=== PATIENT | female | born 1985 | race Hispanic/Latino ===

== ENCOUNTER 2021-02-28 21:42 | Emergency (ER) | payer BC ==
[2021-02-28 23:25] LABS: Bacteria/HPF None Seen HPF (None Seen); Bilirubin Negative (Negative); Blood, Urine Negative (Negative); Clarity Clear (Clear); Glucose, Urine (Dipstick) Normal (Negative); Ketone, Urine Negative (Negative); Leukocyte Negative Leu/uL (Negative); Nitrite Negative (Negative); Protein, Urine (Dipstick) Negative (Neg-Trace); RBC/HPF 0-3 HPF (0-3); Specific Gravity, Urine 1.006 (1.002-1.036); Squamous Epithelial 0-3 HPF (0-3); Urobilinogen Normal mg/dL (Less than 2); WBC/HPF 0-3 HPF (0-3)
[2021-03-03 20:40] LABS: Chlamydia by PCR Not Detected (NotDetected); GC by PCR Not Detected (NotDetected)
== END 2021-02-28 23:34 | disposition home or self-care (01) ==
LOC: ERS 21:42
DX: O99.891 Other specified diseases and conditions complicating pregnancy (principal); N89.8 Other specified noninflammatory disorders of vagina; O09.522 Supervision of elderly multigravida, second trimester
CPT/HCPCS: 81001; 87077; 87086; 87480; 87491; 87510; 87591; 87660; 99283

== ENCOUNTER 2021-03-06 08:33 | Outpatient (CLI) | payer BC | END 2021-03-06 08:34 | disposition home or self-care (01) | LOC: BICULT 08:33 | PROVIDERS: ATTEND Family Medicine | DX: O09.522 Supervision of elderly multigravida, second trimester (principal); Z3A.20 20 weeks gestation of pregnancy | CPT/HCPCS: 76805 ==

== ENCOUNTER 2021-04-09 16:46 | Emergency (ER) | payer BC ==
[2021-04-10 07:50] LABS: SARS-CoV-2 PCR by NAA DETECTED (NotDetected)
== END 2021-04-09 19:27 | disposition home or self-care (01) ==
LOC: ERS 16:46
DX: O98.512 Other viral diseases complicating pregnancy, second trimester (principal); U07.1 COVID-19; Z3A.25 25 weeks gestation of pregnancy
CPT/HCPCS: U0003; U0005

== ENCOUNTER 2022-10-02 08:30 | Outpatient (CLI) | payer BC | END 2022-10-02 08:31 | disposition home or self-care (01) | LOC: BICULT 08:30 | PROVIDERS: ATTEND Family Medicine | DX: R10.9 Unspecified abdominal pain (principal); Z86.11 Personal history of tuberculosis | CPT/HCPCS: 71046; 76700 ==

== ENCOUNTER 2024-12-16 08:18 | Outpatient (CLI) | payer BC ==
[2024-12-16] MEDS ORDERED: Iopamidol 370 76% 100 ML VIAL ONE (11:21)
== END 2024-12-16 08:19 | disposition home or self-care (01) ==
LOC: CT 08:18
PROVIDERS: ATTEND Internal Medicine Gastroenterology
DX: R19.4 Change in bowel habit (principal); R10.9 Unspecified abdominal pain
CPT/HCPCS: 74177; Q9967